=== PATIENT | male | born 1995 | race Caucasian/White ===

== ENCOUNTER 2021-10-07 08:00 | Outpatient (CLI) | payer OTHER ==
[2021-10-07 23:52] LABS: NEISSERIA GONORRHOEAE DNA NEGATIVE (NEGATIVE)
[2021-10-08 00:36] LABS: CHLAMYDIA TRACHOMATIS DNA POSITIVE (NEGATIVE)
== END 2021-10-07 23:59 ==
LOC: LAB.N 08:00
PROVIDERS: ATTEND Physician Assistant
DX: Z11.3 Encounter for screening for infections with a predominantly sexual mode of transmission (principal)
CPT/HCPCS: 87491; 87591; 87661

== ENCOUNTER 2022-05-02 08:00 | Outpatient (CLI) | payer OTHER ==
[2022-05-02 18:36] LABS: CHLAMYDIA TRACHOMATIS DNA NEGATIVE (NEGATIVE); NEISSERIA GONORRHOEAE DNA NEGATIVE (NEGATIVE)
[2022-05-03 06:07] LABS: HCV AB <0.1 s/co ratio (0.0-0.9)
[2022-05-03 07:08] LABS: HIV SCREEN 4TH GENERATION Non Reactive (Non Reactive)
[2022-05-04 04:08] LABS: RPR Non Reactive (Non Reactive)
== END 2022-05-02 23:59 | disposition home or self-care (01) ==
LOC: LAB.N 08:00
PROVIDERS: ATTEND Physician Assistant
DX: Z11.3 Encounter for screening for infections with a predominantly sexual mode of transmission (principal)
CPT/HCPCS: 36415; 81599; 86592; 86694; 86695; 86696; 86803; 87389; 87491; 87529; 87591; 87661

== ENCOUNTER 2022-07-08 12:22 | Outpatient (CLI) | payer OTHER ==
[2022-07-09 02:03] LABS: CHLAMYDIA TRACHOMATIS DNA NEGATIVE (NEGATIVE); NEISSERIA GONORRHOEAE DNA NEGATIVE (NEGATIVE)
[2022-07-10 07:07] LABS: RPR Non Reactive (Non Reactive)
[2022-07-10 08:07] LABS: HIV SCREEN 4TH GENERATION Non Reactive (Non Reactive)
[2022-07-10 13:08] LABS: HCV AB <0.1 s/co ratio (0.0-0.9)
== END 2022-07-08 12:23 | disposition home or self-care (01) ==
LOC: LAB.N 12:22
PROVIDERS: ATTEND Physician Assistant Medical
DX: Z11.3 Encounter for screening for infections with a predominantly sexual mode of transmission (principal)
CPT/HCPCS: 36415; 86592; 86803; 87389; 87491; 87591; 87661

== ENCOUNTER 2023-06-15 11:45 | Outpatient (CLI) | payer OTHER ==
[2023-06-15 21:46] LABS: CHLAMYDIA TRACHOMATIS DNA NEGATIVE (NEGATIVE); NEISSERIA GONORRHOEAE DNA NEGATIVE (NEGATIVE); TRICHOMONAS VAGINALIS DNA NEGATIVE (NEGATIVE)
[2023-06-16 07:10] LABS: HCV AB Non Reactive (Non Reactive); HIV SCREEN 4TH GENERATION Non Reactive (Non Reactive); HSV 1 IGG TYPE SPEC <0.91 index (0.00-0.90); HSV 2 IGG TYPE SPEC <0.91 index (0.00-0.90)
[2023-06-17 05:12] LABS: RPR Non Reactive (Non Reactive)
== END 2023-06-15 12:00 | disposition home or self-care (01) ==
LOC: LAB.N 11:45
PROVIDERS: ATTEND Registered Nurse
DX: Z11.3 Encounter for screening for infections with a predominantly sexual mode of transmission (principal)
CPT/HCPCS: 36415; 86592; 86695; 86696; 86803; 87389; 87491; 87591; 87661

== ENCOUNTER 2023-12-21 14:30 | Outpatient (CLI) | payer OTHER ==
[2023-12-22 08:10] LABS: HSV 1 IGG TYPE SPEC <0.91 index (0.00-0.90); HSV 2 IGG TYPE SPEC <0.91 index (0.00-0.90)
== END 2023-12-21 14:45 | disposition home or self-care (01) ==
LOC: LAB.N 14:30
PROVIDERS: ATTEND Physician Assistant Medical
DX: B00.89 Other herpesviral infection (principal)
CPT/HCPCS: 36415; 86695; 86696